=== PATIENT | female | born 1980 | race Asian ===

== ENCOUNTER 2019-01-27 22:38 | Emergency (ER) | payer SELFPAY ==
[~2019-01-27] VITALS: Ht 160 cm; Wt 54.9 kg
--- NOTE | 2019-01-27 22:40 | NUR ---
BIBRA 78 FROM [place],BY STANDER CALLED, + ETOH, X 1 EPISODE VOMITING, ON R/A VS STABLE, PLACED ON ER BED 12, ASSESSED BY ER DR DONALD, MISSAEL ALEXANDER.
[2019-01-27] MEDS ORDERED: ONDANSETRON HCL/PF 4 MG/2 ML VIAL ONE (22:52)
[2019-01-27] MEDS ORDERED: ONDANSETRON HCL/PF 4 MG/2 ML VIAL IM ONE (23:00)
--- NOTE | 2019-01-28 02:20 | NUR ---
Patient discharged to home in stable condition. Written and verbal after care instructions given. Patient verbalizes understanding of instruction.
[2019-01-28 02:21] VITALS: BP 117/66
--- NOTE | 2019-01-28 02:25 | NUR ---
PT PICKED UP BY HER [employer]. WITH STABLE GAIT SUPPORT GIVEN.
== END 2019-01-28 02:24 | disposition home or self-care (01) ==
LOC: ER 22:40
DX: F10.129 Alcohol abuse with intoxication, unspecified (principal); R11.2 Nausea with vomiting, unspecified; Y90.9 Presence of alcohol in blood, level not specified
CPT/HCPCS: 82962; 96372; 99283; J2405